=== PATIENT | male | born 2005 | race Caucasian/White ===

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

== ENCOUNTER 2024-02-02 17:38 | Emergency (ER) | payer SELFPAY ==
--- NOTE | 2024-02-02 18:00 | XR_ITS ---
PROCEDURE INFORMATION: Exam: XR Left Hand Exam date and time: 02/02/2024 5:56 PM Age: 18 years old Clinical indication: Injury or trauma; Other: Smashed in car door; Blunt trauma (contusions or hematomas); Hand; Left; Additional info: Smashed 1st digit in car door TECHNIQUE: Imaging protocol: Radiologic exam of the left hand. Views: 3 or more views. COMPARISON: No relevant prior studies available. FINDINGS: Bones/joints: No acute fracture or malalignment. Soft tissues: Normal. IMPRESSION: No acute osseous findings.
[2024-02-02 18:10] VITALS: BP 122/74; PULSE 89; RESP 18; TEMP 36.6; O2SAT 98; BMI 38.4
--- NOTE | 2024-02-02 18:15 | ED_ITS ---
Discharge Plan Disposition Patient Disposition: Home, Self-Care Condition: Good Prescriptions Prescriptions: New ibuprofen [IBU] 800 mg tablet 800 mg PO Q8HP PRN (Reason: Moderate Pain) Qty: 30 0RF Referrals Follow up/Referrals: Harjeet Soto [Primary Care Provider] - See instructions Richard Nava DO [Staff Physician] - See instructions Activity Restrictions/Add. Instructions Additional Instructions/Restrictions: Rest the extremity, Elevate the extremity as tolerated while you are resting. Take ibuprofen for pain. I sent in a prescription to your pharmacy. Follow up with Dr. Nava (orthopedics). I put in a referral but you need to call his office and schedule an appointment. Follow up with your regular doctor. GO TO THE ER FOR ANY WORSENING SYMPTOMS Clinical Impressions Clinical Impression: Crushing injury of left thumb, Pain of right middle finger Stand Alone Forms Stand Alone Forms: Work/School Release Instructions Patient Instructions: DI for Crush Injury Discharge ED Provider: Panda Batista [facility] General Stated complaint: AO 02/01, left thumb pain Time Seen by Provider: 02/02/24 18:15 History of Present Illness Provider Complaint: He states that he closed his left thumb up in his truck door today. Since then he has had pain of the middle joint on his thumb. Also, he has been having right middle finger pain for the past 2 weeks. He denies any injury of this finger but he does have some swelling and a knot on top of it just proximal to the first joint. Related Data Previous Rx's Medication Instructions Recorded ibuprofen 800 mg tablet (IBU) 800 mg PO Q8HP PRN Moderate Pain 02/02/24 #30 tabs Allergies Allergy/AdvReac Type Severity Reaction Status Date / Time No Known Allergies Allergy Verified 02/02/24 18:20 [facility] Disclaimer: The information contained in this section may have been updated after the patient was seen, as this information can be updated by other users. Social History Smoking Status: Never smoker alcohol intake: never current occupational status: employed Travel in the last 8 weeks: None ROS Obtained: Yes All systems reviewed & no additional complaints except as documented Constitutional Constitutional: Denies chills and Denies fever(s) Eyes Eyes: Denies eye discharge ENT Ears, Nose, Mouth, and Throat: Denies dizziness, Denies otalgia and Denies sore throat Cardiovascular Cardiovascular: Denies chest pain Respiratory Respiratory: Denies shortness of breath, Denies chest congestion, Denies cough, Denies stridor and Denies wheezing Gastrointestinal Gastrointestingal: Denies nausea or vomiting Musculoskeletal Musculoskeletal: Reports as per HPI Integumentary/Breasts Skin/Breast: Denies rash Neurologic Neurologic: Denies dizziness and Denies paresthesias Allergic/Immunologic Allergic/Immunologic: Denies wheezing Physical Exam General General appearance: alert and in no apparent distress Head Head exam: atraumatic, normocephalic and normal inspection Eye Eye exam: Present normal appearance, PERRL and EOMI ENT ENT exam: Present normal exam, normal oropharynx, mucous membranes moist, TM's normal bilaterally and normal external ear exam Neck Neck exam: Present normal inspection, full ROM and trachea midline; Absent meningismus or lymphadenopathy Chest Chest inspection: Present normal inspection and symmetric chest wall rise; Absent tenderness Respiratory Respiratory exam: Present normal lung sounds bilaterally; Absent respiratory distress Cardiovascular Cardiovascular exam: Present regular rate and normal rhythm; Absent JVD Abdominal Exam Abdominal exam: Present soft and normal bowel sounds; Absent distention, tenderness or guarding Extremities Exam Extremities exam: Present normal capillary refill; Absent calf tenderness Expanded Upper Extremity Exam Left: Forearm/Wrist exam: Present normal inspection and full ROM; Absent tenderness, tenderness over anatomical snuff box or pain with axial thumb loading Hand exam: Present full ROM and tenderness; Absent swelling, abrasion, laceration, skin avulsion, ecchymosis, deformity, crepitus, dislocation, erythema, amputation, nail avulsion or subungual hematoma Neuromotor exam: Normal wrist extension, thumb opposition, thumb IP flexion, thumb adduction and fingers 2-5 abduction Neurosensory exam: Normal radial nerve, ulnar nerve and median nerve Vascular exam: Normal capillary refill, radial pulse and ulnar pulse Back Exam Back exam: Present normal inspection; Absent tenderness Neurological Exam Neurological exam: Present alert and oriented X3 Psychiatric Psychiatric exam: Present normal affect and normal mood Skin Skin exam: Present warm, dry, intact and normal color Lymphatic Lymphatic Findings: no adenopathy Medical Decision Making Medical Records Medical records reviewed: No I reviewed the patient's medical records. Jermaine Inquiry Pt receiving controlled substance: No Orders (Tests/Meds): ORDERS Category Date Time Status Hand XR left minimum 3 views [XR hand LT min 3V] Stat Exams 02/02/24 18:00 Taken Radiology Data #1: Image(s): Hand Image Reviewed: Yes I reviewed the patient's radiology image and Yes I have reviewed radiologist's interpretation Preliminary Findings: Normal/NAD and No Fracture Seen PROCEDURE INFORMATION: Exam: XR Left Hand Exam date and time: 02/02/2024 5:56 PM Age: 18 years old Clinical indication: Injury or trauma; Other: Smashed in car door; Blunt trauma (contusions or hematomas); Hand; Left; Additional info: Smashed 1st digit in car door TECHNIQUE: Imaging protocol: Radiologic exam of the left hand. Views: 3 or more views. COMPARISON: No relevant prior studies available. FINDINGS: Bones/joints: No acute fracture or malalignment. Soft tissues: Normal. IMPRESSION: No acute osseous findings.
[2024-02-02 18:55] VITALS: BP 122/74; PULSE 89; RESP 18; TEMP 36.6; O2SAT 98
== END 2024-02-02 18:55 | disposition home or self-care (01) ==
PROVIDERS: Emergency Provider Nurse Practitioner Family; PCP Pediatrics
DX: S67.02XA Crushing injury of left thumb, initial encounter (principal); M79.644 Pain in right finger(s); W23.0XXA Caught, crushed, jammed, or pinched between moving objects, initial encounter
CPT/HCPCS: 73130; 99204; 99212; G0463

== ENCOUNTER 2024-05-10 17:38 | Emergency (ER) | payer OTHER, SELFPAY ==
--- NOTE | 2024-05-10 17:38 | ECG_ITS ---
APPROVED REPORT Exam: Resting ECG HR:89 bpm ECG Measurements Heart Rate 89 AXES LA 166 P 66 QRSd 101 QRS 83 QT 329 T 15 QTc 376 Conclusion SINUS RHYTHM NORMAL ECG Electronically signed by : DAILY GONZALEZ, 05/11/2024 04:34:53
[2024-05-10 17:39] VITALS: BP 125/84; PULSE 89; RESP 16; TEMP 36.9; O2SAT 99; BMI 38.4
--- NOTE | 2024-05-10 17:51 | ED_ITS ---
<Statement entered by Flavia Stoner MD - 05/10/24 22:59> I was consulted by the BRYAN, and we discussed the complexity of the problems being addressed. I approved the treatment and management plan for this patient's care in the emergency department, thus performing a substantive portion of the medical decision making. Flavia Stoner MD, PEEWEE, FACEP Discharge Plan Disposition Patient Disposition: Home, Self-Care Condition: Good Prescriptions Prescriptions: No Action desvenlafaxine succinate [Pristiq] 50 mg tablet extended release 24 hr 50 mg PO DAILY Qty: 30 2RF ibuprofen [IBU] 800 mg tablet 800 mg PO Q8HP PRN (Reason: Moderate Pain) Qty: 30 0RF Referrals Follow up/Referrals: Andrew Collier MD [Staff Physician] - See instructions Provider,MD Arturo [Primary Care Provider] - See instructions Activity Restrictions/Add. Instructions Additional Instructions/Restrictions: I have referred you to cardiology. Please call in the morning to schedule your appointment. Return to the emergency department for any worsening signs or symptoms. Please follow-up with your PCP within 48 hours for recheck. Clinical Impressions Clinical Impression: Chest pain Stand Alone Forms Stand Alone Forms: Work/School Release Instructions Patient Instructions: DI for Chest Pain Discharge ED Provider: Flavia Stoner General Adult HPI General Chief complaint: Chest Pain Stated complaint: chest pain Time Seen by Provider: 05/10/24 17:51 Mode of Arrival: Wheelchair Source of Information: Patient Limitations: No Limitations Description of Symptoms (Recalled from ER Triage Doc. by RN): Patient reports sharp shooting pains going through his heart that started approx 2-3 hours ago. States at the time he was bringing the kids in from being outside for approx 1 hour. History of Present Illness HPI narrative: Patient presents for evaluation of sharp left chest pain that started 2-3 hours prior to arrival after getting his kids out of a car. He has no previous history but does have a family history of congenital heart disease. Patient denies shortness of breath fever chills hemoptysis hematochezia melena nausea vomiting diarrhea. Pain does not radiate. Related Data Previous Rx's Medication Instructions Recorded ibuprofen 800 mg tablet (IBU) 800 mg PO Q8HP PRN Moderate Pain 02/02/24 #30 tabs desvenlafaxine succinate 50 mg 50 mg PO DAILY #30 tabs 04/11/24 tablet,extended release 24 hr (Pristiq) Allergies Allergy/AdvReac Type Severity Reaction Status Date / Time No Known Allergies Allergy Verified 04/11/24 15:22 [facility] Disclaimer: The information contained in this section may have been updated after the patient was seen, as this information can be updated by other users. Social History Smoking Status: Current every day smoker alcohol intake: never current occupational status: employed Travel in the last 8 weeks: None ROS Obtained: Yes Systems reviewed as appropriate & no additional complaints except as documented Physical Exam General General appearance: alert and in no apparent distress Respiratory Respiratory exam: Present normal lung sounds bilaterally Cardiovascular Cardiovascular exam: Present regular rate and normal rhythm Neurological Exam Neurological exam: Present alert and oriented X3 Medical Decision Making Medical Records Medical records reviewed: Yes I reviewed the patient's medical records. Jermaine Inquiry Pt receiving controlled substance: No Vital Signs: 05/10/24 17:39 05/10/24 18:01 Temperature 98.5 F Temperature Source Oral Pulse Rate 87 Pulse Rate [Radial] 89 Respiratory Rate 16 Blood Pressure 119/63 Blood Pressure [Right Arm] 125/84 Blood Pressure Mean [Right Arm] 97 Blood Pressure Source [Right Arm] Automatic Cuff Blood Pressure Position [Right Arm] Supine 02 Sat by Pulse Oximetry 99 97 Oxygen Delivery Method Room Air Lab Data Lab results reviewed: Yes I reviewed the patient's lab results. Lab Results 05/10/24 17:43: WBC 8.2, RBC 5.23, Hgb 15.3, Hct 45.3, MCV 86.6, MCH 29.3, MCHC 33.8, RDW 13.1, Plt Count 228, MPV 6.9 L, Neut % (Auto) 47.3, Lymph % (Auto) 39.8, [place] % (Auto) 7.6, Eos % (Auto) 4.2, Baso % (Auto) 1.0, Neut # (Auto) 3.9, Lymph # (Auto) 3.3, [place] # (Auto) 0.6, Eos # (Auto) 0.4, Baso # (Auto) 0.1, Sodium 143, Potassium 3.7, Chloride 110 H, Carbon Dioxide 27, Anion Gap 9.7, BUN 12, Creatinine 0.90, Estimated Creat Clear 218, Estimated GFR 108, Est GFR ( Amer) 130, Glucose 87, Calcium 9.3, Magnesium 1.9, Total Bilirubin 0.3, AST 29, ALT 28, Alkaline Phosphatase 59, Troponin I < 0.01, Total Protein 7.0, Albumin 4.4, Globulin 2.6, Albumin/Globulin Ratio 1.7 05/10/24 17:43 05/10/24 17:43 Orders (Tests/Meds): ED MEDICATIONS Discontinued Medications Generic Name Dose Route Start Last Admin Trade Name Deo PRN Reason Stop Dose Admin Acetaminophen 1,000 mg 05/10/24 18:04 05/10/24 18:18 Acetaminophen 1,000mg/100ml Vial IV 05/10/24 18:05 1,000 mg ONCE ONE Administration Belladonna Alkaloids 60 ml 05/10/24 18:04 05/10/24 18:18 Belladonna Alkaloids 60 Ml Ml PO 05/10/24 18:05 60 ml ONCE ONE Administration Lactated Ringer's 1,000 mls @ 999 mls/hr 05/10/24 18:04 05/10/24 18:19 Lactated Ringer's 1000 Ml Bag IV 05/10/24 19:04 999 mls/hr .Q1H1M ONE Administration Ketorolac Tromethamine 15 mg 05/10/24 18:04 05/10/24 18:18 Ketorolac 30mg/Ml Vial IV 05/10/24 18:05 15 mg ONCE ONE Administration ORDERS Category Date Time Status Chest XR -- portable [XR chest portable] Stat Exams 05/10/24 18:05 Completed CBC w/Auto Diff [Complete Blood Count Auto Diff] Stat Lab 05/10/24 17:43 Completed CMP [Comprehensive Metabolic Panel] Stat Lab 05/10/24 17:43 Completed Magnesium Stat Lab 05/10/24 17:43 Completed Trop I [Troponin I] Stat Lab 05/10/24 17:43 Completed Troponin I Q3H Lab 05/10/24 21:15 Ordered Troponin I Q3H Lab 05/11/24 00:15 Ordered HEART Score History (anamnesis): Slightly suspicious ECG: Normal Age: <45 years Risk factors: 1-2 risk factors Troponin: </= normal limit HEART Score: 1 Medical Decision Narrative: In summary patient is a 18-year-old male who presents to the emergency department for evaluation of chest pain. Patient is hemodynamically stable upon arrival, afebrile. Physical exam is unremarkable nonfocal including nonreproducible pain on palpation. Breath sounds are clear and equal bilaterally heart sounds are normal. Differential diagnosis includes ACS versus PE versus muscle skeletal strain. Initial workup will be conducted with hematologic labs twelve-lead EKG. Initial interventions include crystalloid bolus Toradol Tylenol GI cocktail. Initial workup reviewed by me and his hematologic labs are nonactionable including a negative troponin, twelve-lead EKG shows no evidence of ACS and his chest x-ray is clear via my informal interpretation. Upon repeat evaluation patient has had resolution of his chest pain after initial intervention. Given this patient is appropriate for discharge with referral to cardiology for further restratification and workup as needed. Critical Care Critical Care Time Critical Care Time: No
[2024-05-10 18:01] VITALS: BP 119/63; PULSE 87; O2SAT 97
--- NOTE | 2024-05-10 18:05 | XR_ITS ---
PROCEDURE INFORMATION: Exam: XR Chest Exam date and time: 05/10/2024 6:07 PM Age: 18 years old Clinical indication: Chest wall pain; Additional info: Chest pain TECHNIQUE: Imaging protocol: Radiologic exam of the chest. Views: 1 view. COMPARISON: No relevant prior studies available. FINDINGS: Lungs: Unremarkable. No consolidation. Pleural spaces: Unremarkable. No pleural effusion. No pneumothorax. Heart/Mediastinum: Unremarkable. No cardiomegaly. Bones/joints: Unremarkable. IMPRESSION: No acute findings.
[2024-05-10 18:13] LABS: Basophils # 0.1 K/mm3 (0-0.2); Eosinophils # 0.4 K/mm3 (0.0-0.4); Eosinophils % 4.2 % (0.1-12.0); Hematocrit 45.3 % (42.0-52.0); Hemoglobin 15.3 g/dL (14.1-18.0); Lymphocytes # 3.3 K/mm3 (0.7-4.5); Lymphocytes % 39.8 % (10-50); Mean Corpuscular HGB Conc 33.8 g/dL (31.8-35.4); Mean Corpuscular Hemoglobin 29.3 pg (27.0-31.2); Mean Corpuscular Volume 86.6 fl (80-94); Mean Platelet Volume 6.9 fl (7.4-10.4); Monocytes # 0.6 K/mm3 (0.1-1.0); Monocytes % 7.6 % (1.7-9.3); Neutrophils # 3.9 K/mm3 (1.8-7.8); Neutrophils % 47.3 % (37.0-80.0); Platelet Count 228 K/mm3 (142-424); Red Blood Count 5.23 M/mm3 (4.60-6.20); Red Cell Distribution Width 13.1 % (11.5-17.5); White Blood Count 8.2 K/mm3 (4.5-13.0)
[2024-05-10 18:15] LABS: Chloride 110 mmol/L (98-107); Potassium 3.7 mmoL/L (3.5-5.1); Sodium 143 mmol/L (136-145)
[2024-05-10 18:17] LABS: Blood Urea Nitrogen 12 mg/dl (9-20); Creatinine Clearance Estimated 218 mL/min (50-200); Estimated Glomerular Filt Rate 108 ml/min (>60); GFR (African American) 130 ML/MIN (>60)
[2024-05-10 18:18] LABS: Alanine Aminotransferase 28 U/L (12-78); Albumin Level 4.4 g/dl (3.5-5.0); Albumin/Globulin Ratio 1.7 (1.1-1.8); Alkaline Phosphatase 59 U/L (38-126); Anion Gap 9.7 mEq/L (5-15); Aspartate Amino Transferase 29 U/L (17-59); Bilirubin,Total 0.3 mg/dl (0.2-1.3); Calcium 9.3 mg/dl (8.4-10.2); Carbon Dioxide 27 mmol/L (22.0-30.0); Globulin 2.6 g/dL (1.3-3.2); Glucose 87 mg/dl (74-100); Magnesium 1.9 mg/dl (1.6-2.3)
[2024-05-10] MEDS: ACETAMINOPHEN 1,000MG/100ML VIAL 1000 MG IV (18:18)
[2024-05-10] MEDS: BELLADONNA ALKALOIDS 60 ML ML PO (18:18)
[2024-05-10] MEDS: KETOROLAC 30MG/ML VIAL 15 MG IV (18:18)
[2024-05-10] MEDS: LACTATED RINGERS 1000ML 1,000 ML 999 ML IV (18:19)
[2024-05-10 18:47] LABS: Troponin I < 0.01 ng/ml (0.00-0.034)
[2024-05-10 19:00] VITALS: BP 121/68; PULSE 79; O2SAT 95
[2024-05-10 19:32] VITALS: BP 121/68; PULSE 83; RESP 20; TEMP 36.7; O2SAT 98
== END 2024-05-10 19:33 | disposition home or self-care (01) ==
PROVIDERS: Physician Assistant; Emergency Provider Student in an Organized Health Care Education/Training Program
DX: R07.9 Chest pain, unspecified (principal); F17.210 Nicotine dependence, cigarettes, uncomplicated
CPT/HCPCS: 71045; 80053; 83735; 84484; 85025; 93005; 96361; 96374; 96375; 99284; J0131; J1885; J7120

== ENCOUNTER 2024-05-23 10:27 | Outpatient (CLI) | payer OTHER, SELFPAY ==
[2024-05-23 19:00] LABS: Basophils # 0.1 K/mm3 (0-0.2); Basophils % 1.3 % (0.1-2.0); Eosinophils # 0.3 K/mm3 (0.0-0.4); Eosinophils % 5.1 % (0.1-12.0); Hematocrit 46.9 % (42.0-52.0); Hemoglobin 15.4 g/dL (14.1-18.0); Lymphocytes % 35.4 % (10-50); Mean Corpuscular HGB Conc 32.8 g/dL (31.8-35.4); Mean Corpuscular Hemoglobin 29.3 pg (27.0-31.2); Mean Corpuscular Volume 89.3 fl (80-94); Mean Platelet Volume 8.4 fl (7.4-10.4); Monocytes # 0.4 K/mm3 (0.1-1.0); Monocytes % 6.8 % (1.7-9.3); Neutrophils % 51.5 % (37.0-80.0); Platelet Count 250 K/mm3 (142-424); Red Blood Count 5.25 M/mm3 (4.60-6.20); Red Cell Distribution Width 13.3 % (11.5-17.5); White Blood Count 5.7 K/mm3 (4.8-10.8)
[2024-05-23 19:24] LABS: Alanine Aminotransferase 32 U/L (12-78); Albumin Level 4.3 g/dl (3.5-5.0); Albumin/Globulin Ratio 1.7 (1.1-1.8); Alkaline Phosphatase 70 U/L (38-126); Anion Gap 13.2 mEq/L (5-15); Aspartate Amino Transferase 26 U/L (17-59); Bilirubin,Total 0.8 mg/dl (0.2-1.3); Blood Urea Nitrogen 12 mg/dl (9-20); Calcium 9.4 mg/dl (8.4-10.2); Carbon Dioxide 24 mmol/L (22.0-30.0); Chloride 109 mmol/L (98-107); Estimated Glomerular Filt Rate 142 ml/min (>60); GFR (African American) 172 ML/MIN (>60); Globulin 2.6 g/dL (1.3-3.2); Glucose 92 mg/dl (74-100); Potassium 4.2 mmoL/L (3.5-5.1); Sodium 142 mmol/L (136-145); Total Protein,Serum 6.9 g/dl (6.3-8.2)
[2024-05-23 19:53] LABS: Thyroid Stimulating Hormone 0.99 uIU/mL (0.465-4.68)
[2024-05-23 20:04] LABS: Hemoglobin A1C 4.8 % (4.0-6.0)
[2024-05-23 20:20] LABS: Microalbumin/Creatinine Ratio 18.2
[2024-05-23 20:22] LABS: Creatinine,Urine Random 74 mg/dL (Not Estab.)
== END 2024-05-23 23:59 | disposition home or self-care (01) ==
LOC: LAB.DROPOF 05-24 10:27
PROVIDERS: PCP Nurse Practitioner; Visit Provider Nurse Practitioner
DX: I10 Essential (primary) hypertension (principal); Z72.0 Tobacco use
CPT/HCPCS: 80050; 80053; 82043; 82570; 83036; 84443; 85025

== ENCOUNTER 2024-05-24 10:24 | Outpatient (CLI) | payer OTHER, SELFPAY ==
--- NOTE | 2024-05-24 10:25 | CA_ITS ---
APPROVED REPORT EXAM: Comprehensive 2D, Doppler, and color-flow Echocardiogram Sanitation Officer: Anjali Peck RCS, RVS Ht: 5 ft 9 in Wt: 270lbs BSA: 2.35 BP: 138/92 mmHg Indications: Palpitations, CP, HTN, Vaping Echo Enhancing Agent Comments: TDS: Due to extreme body habitus. 2D Dimensions LVDd 4.95 cm LA Volume 79.40 mL Aortic Root 3.25 cm LA Volume Index [id number] mL/m2 (M/F) 16-34 Left Atrium 3.38 cm EF AP4 68.30 % RVID Base (AP4) 4.35 cm (M/F) 2.5-4.1 GL Strain -20.0 % LVOT 2.12 cm (M/F) 1.5-2.5 M-Mode Dimensions RVDd 1.78 cm (0.9-2.6) LVDd 4.95 cm (3.5-5.7) Ao Diam 3.27 cm (2.0-3.7) LVDs 3.63 cm (3.5-5.7) IVSd 1.14 cm (0.6-1.1) PWd 1.18 cm (0.6-1.1) EF (Teich) 62.30% EPSs 0.76 cm FS 34.00% EDV (Teich) 147.40 mL TAPSE 2.50 (<1.7) ESV (Teich) 55.50 mL LV Diastology E Decel Time 189 (160-240 msec) E/A Ratio 1.87 MED E' 10.7 (>= 7 cm/sec) MED A' 7.60 cm/s E'/MED E' Ratio 8.95 (<= 14) LAT E' 13.5 (>= 10 cm/sec) LAT A' 8.90 cm/s E/LAT E' Ratio 7.10 (<= 14) Aortic Valve LVOT Max 94.0 (70-110 cm/s) HANSEL Index 0.99 cm2/m2 LVOT VTI 17.83 cm AoV Peak Koby. 137.0 (50-130 cm/s) AO Peak GR. 6.60 mmHg AO Mean GR. 3.80 (<5 mmHg) AO VTI 27.1 (18-25 cm) HANSEL (VTI) 2.32 (2.5-4.5 cm2) Mitral Valve MV E Max Koby. 96.0 (40-130 cm/s) MV A Velocity 51.0 (40-130 cm/s) E/A Ratio 1.87 MV Decel. Time 189 (160-240 ms) Tricuspid Valve TR P. Velocity 259.00 cm/s RAP Estimate 10.00 mmHg RVSP 36.90 mmHg Left Ventricle The left ventricle is normal size. The left ventricular systolic function is normal. The left ventricular ejection fraction is within the normal range. There is normal left ventricular wall thickness. There is normal LV segmental wall motion. The left ventricular diastolic function is normal. LVEF is 55%. Right Ventricle Right ventricle is mildly dilated. The right ventricular systolic function is normal. Atria The left atrium size is normal. The right atrium size is normal. There is no Doppler evidence of interatrial shunt. Aortic Valve The aortic valve opens well. There is no aortic valvular stenosis. Trace aortic regurgitation. Mitral Valve The mitral valve is normal in structure. No evidence of mitral valve stenosis. Trace mitral regurgitation. Tricuspid Valve The tricuspid valve leaflets are thin and pliable. Trace tricuspid regurgitation. There is insufficient TR jet to estimate RVSP. Pulmonic Valve The pulmonary valve is normal in structure. Trace pulmonic regurgitation. Great Vessels The aortic root is normal in size. The ascending aorta is normal in size. IVC is normal in size and collapses >50% with inspiration. Pericardium There is no pericardial effusion. Other Information Study Quality: Fair Conclusion Normal biventricular systolic function. Mild RV dilation. No significant valvular stenosis or regurgitation. There is no Doppler evidence of interatrial shunt. In the setting of mild RV dilation, further evaluation with limited TTE plus bubble study (i.e. agitated saline administration) is suggested to rule out interatrial shunt. Also, cardiac MRI ([facility] protocol) is recommended to rule out ARVC in the setting of young age and symptoms of palpitations with RV dilation on TTE. Electronically signed by : Laly Jacome MD 05/24/2024 11:51:14
== END 2024-05-24 23:59 | disposition home or self-care (01) ==
PROVIDERS: PCP Nurse Practitioner; Visit Provider Nurse Practitioner
DX: R00.2 Palpitations (principal); R07.9 Chest pain, unspecified; Z82.79 Family history of other congenital malformations, deformations and chromosomal abnormalities
CPT/HCPCS: 93225; 93227; 93306

== ENCOUNTER 2024-06-01 13:09 | Outpatient (CLI) | payer OTHER, SELFPAY ==
--- NOTE | 2024-06-01 | CA_ITS ---
APPROVED REPORT EXAM: Limited 2D Echocardiogram Pharmacy Technician Program Director: Mena Tatum RT(R) Ht: 5 ft 9 in Wt: 260lbs BSA: 2.31 BP: 138/92 mmHg Indications: Palpitations, CP, smoker, dilated RV on TTE 05/24/24, ordered as a bubble study only. Echo Enhancing Agent Indication: Rule out Shunt Agent(s) / Amount(s) Used: Agitated Saline 15 cc Other Information Study Quality: Fair Conclusion This is a limited TTE with agitated saline administration to evaluate for interatrial shunt. Limited windows were obtained. The left ventricle is normal in size. There is normal LV systolic function. LVEF is 55%. The right ventricle is mildly dilated. There is normal RV function. Administration of agitated saline demonstrates positive migration of bubbles from the RA into the LA, suggestive of presence of interatrial shunt. Further evaluation with cardiac MRI (cardiomyopathy protocol + ASD evaluation Qp:Qs ratio) and EDEN are recommended to evaluate for the size and location of the interatrial shunt. Electronically signed by : Laly Jacome MD 06/01/2024 19:46:03
== END 2024-06-01 23:59 | disposition home or self-care (01) ==
LOC: RT 13:10
PROVIDERS: PCP Nurse Practitioner; Visit Provider Nurse Practitioner
DX: I51.7 Cardiomegaly (principal); R00.2 Palpitations; R07.9 Chest pain, unspecified; R06.02 Shortness of breath; Z82.79 Family history of other congenital malformations, deformations and chromosomal abnormalities
CPT/HCPCS: 93270; 93308

== ENCOUNTER 2024-06-15 12:18 | Outpatient (CLI) | payer OTHER, SELFPAY ==
[2024-06-15] MEDS: IVABRADINE HCL 7.5MG TABLET *IVABRADINE+METOPROLOL REGIMINE 15 MG PO (12:41)
[2024-06-15] MEDS: METOPROLOL TARTRATE 50MG TABLET *IVABRADINE+METOPROLOL REGIMINE 75 MG PO (12:41)
[2024-06-15 13:20] VITALS: BP 143/80; PULSE 78; RESP 18; TEMP 36.5; O2SAT 95; BMI 37.6
[2024-06-15 14:03] VITALS: BP 128/69; PULSE 83; RESP 18; O2SAT 100
[2024-06-15 14:06] VITALS: BP 100/54; PULSE 65; RESP 18; O2SAT 100
[2024-06-15 14:09] VITALS: BP 101/55; PULSE 60; RESP 18; O2SAT 100
[2024-06-15] MEDS: IOPAMIDOL-370 (76%);100ML BOTTLE 85 ML IV (14:16)
[2024-06-15] MEDS: 0.9 % SODIUM CHLORIDE 50 ML VIAL IV (14:16)
[2024-06-15] MEDS: SODIUM CHLORIDE 0.9% 10ML SYR (RAD ONLY) 10 ML IV (14:16)
[2024-06-15 14:20] VITALS: BP 118/72; PULSE 62; RESP 18; O2SAT 100
[2024-06-15] MEDS: NITROGLYCERIN 0.4MG SL TABLET 0.8 MG SL (14:20)
== END 2024-06-15 23:59 | disposition home or self-care (01) ==
PROVIDERS: PCP Nurse Practitioner; Visit Provider Nurse Practitioner
DX: R07.9 Chest pain, unspecified (principal); R00.2 Palpitations; R06.02 Shortness of breath; Z82.79 Family history of other congenital malformations, deformations and chromosomal abnormalities
CPT/HCPCS: 75574; Q9967

== ENCOUNTER 2024-07-14 09:51 | Outpatient (CLI) | payer OTHER, SELFPAY ==
--- NOTE | 2024-07-14 09:51 | MR_ITS ---
APPROVED REPORT Internet Architect: CLINICAL INDICATION RV dilation on TTE TECHNIQUE Image Acquisition: Cardiac magnetic resonance (CMR) was performed on Siemens Espree MRI 1.5T scanner. Software platform sequences were performed using the Siemens Machine Talker MR B19 platform. A set of three-plane, low-resolution, large bhrlf-of-blnh localizers were initially acquired. Then axial, coronal, sagittal TrueFISP, as well as axial HASTE images, were obtained. These were followed by gated TrueFISP breathold cinematic sequences obtained in the short axis with 8 mm slices and 2 mm gaps, 2-chamber (vertical long axis), 3-chamber, 4-chamber (horizontal long axis). A bolus of contrast was injected intravenously with first-pass sequences obtained in the short axis and four-chamber planes. After approximately 10 minutes, a TI financial reserve clerk sequence was performed to determine the optimal TI time. Using the optimized TI time, delayed contrast enhancement segmented inversion???recovery TurboFLASH sequences were obtained in the short axis, 2-chamber, 3-chamber, and 4-chamber projections. 2D-velocity phase mapping was performed. Functional parameters were calculated by offline analysis on an independent workstation ([employer] 1 [employer] Platform, CVIGreystripe). Contrast: ProHance??? (Gadoteridol) FINDINGS MORPHOLOGY AND FUNCTION Left ventricle: The left ventricle is normal in size. The indexed left ventricular end-diastolic volume (LVEDVi) is 76 ml/m2 (reference range 57-105 ml/m2 in males, 56-96 ml/m2 in females). Normal left ventricular systolic function is present. There is normal left ventricular wall thickness. There are no regional wall motion abnormalities noted. LVEF is calculated at 57.6% (reference range 57-77%). Right ventricle: The right ventricle is normal in size. The indexed right ventricular end-diastolic volume (RVEDVi) is 89 ml/m2 (reference range 61-121 ml/m2 in males, 48-112 ml/m2 in females). Normal right ventricular systolic function is present. RVEF is calculated at 50.0% (reference range 52-72% in males, 51-71% in females). Atria: The left atrium is normal in size. The maximum indexed left atrial volume is 20 ml/m2 (reference range 26-52 ml/m2 in males, 27-53 ml/m2 in females). The right atrium is normal in size. The maximum indexed right atrial volume is 18 ml/m2 (reference range 18-90 ml/m2). Aorta: The diameter of the aortic annulus is normal, measuring 28 mm (coronal view reference range 21-30 mm in males, 19-27 mm in females). The diameter of the aortic sinus is normal, measuring 33 mm (coronal view reference range 25-42 mm in males, 24-36 mm in females). The diameter of the sinotubular junction is normal, measuring 27 mm (coronal view reference range 18-32 mm in males, 18-28 mm in females). The diameters of the ascending and descending thoracic aorta are normal. Main pulmonary artery: The main pulmonary artery diameter is normal. Pericardium: The pericardial thickness is normal. The pericardial thickness measures 1.0 mm (normal < 4.0 mm). There is no pericardial effusion. VALVES The valvular morphologies in the visualized sequences appear normal. There is no significant valvular stenosis or regurgitation of the mitral, aortic, tricuspid, or pulmonic valve noted visually. Systolic anterior motion of the mitral valve is not visualized. Ratio of pulmonary to systemic flow, Qp:Qs ratio = 0.9 (normal < or = 1.2, hemodynamically significant shunt > 1.5), demonstrating no evidence of hemodynamically significant shunt. TISSUE CHARACTERIZATION Resting Perfusion: Normal myocardial blood flow at rest. No evidence of resting hypoperfusion. Myocardial Fibrosis and/or edema: Normal gadolinium kinetics are present. No evidence of late gadolinium enhancement is noted, consistent with absence of myocardial scarring, infarction, or necrosis. T2-weighted imaging demonstrates no evidence of myocardial edema or inflammation. OTHER No other significant findings are noted. However, this exam is focused on the cardiac structure and function. IMPRESSION Normal LV size with normal LV systolic function. LVEDVi= 76 ml/m2 and LVEF= 57.6%. Normal RV size with normal RV systolic function. RVEDVi= 89 ml/m2 and RVEF= 50.0%. No atrial enlargement. No CMR evidence of myocardial scarring, infarction, or necrosis. No evidence of myocardial edema or inflammation. Perfusion analysis demonstrates normal blood flow at rest with no evidence of resting hypoperfusion. Ratio of pulmonary to systemic flow, Qp:Qs ratio = 0.9 (normal < or = 1.2, hemodynamically significant shunt > 1.5), demonstrating no evidence of hemodynamically significant shunt. This CMR demonstrates normal biventricular size and systolic function. No evidence of RV dilation. No CMR criteria for ARVC. No evidence of myocardial scarring, inflammation, or prior infarct. Qp/Qs ratio normal, suggestive against presence of interatrial shunt. COMPARISON None CRITICAL RESULT None COMMUNICATION Per this written report The findings of this cardiac MR were reviewed, reported, and signed by Alfie Jacome MD (Chair And Couch Maker). Conclusion Electronically signed by : Laly Jacome MD 08/08/2024 13:28:52
[2024-07-14 10:15] LABS: Blood Urea Nitrogen 17 mg/dl (9-20); Estimated Glomerular Filt Rate 122 ml/min (>60); GFR (African American) 148 ML/MIN (>60)
[2024-07-14] MEDS: GADOTERIDOL INJ 20ML SYRINGE 20 ML IV (12:10)
[2024-07-14] MEDS: SODIUM CHLORIDE 0.9% 10ML SYR (RAD ONLY) 10 ML IV (12:10)
[2024-07-14] MEDS: GADOTERIDOL INJ 10ML SYRINGE 6 ML IV (12:10)
[2024-07-14] MEDS: 0.9 % SODIUM CHLORIDE 50 ML VIAL 20 ML IV (12:11)
== END 2024-07-14 23:59 | disposition home or self-care (01) ==
LOC: RAD 09:51
PROVIDERS: PCP Nurse Practitioner; Visit Provider Nurse Practitioner
DX: I51.7 Cardiomegaly (principal)
CPT/HCPCS: 36415; 75561; 82565; 84520; A9576

== ENCOUNTER 2024-07-26 10:20 | Day surgery (SDC) | payer OTHER, SELFPAY ==
[2024-07-24 15:06] VITALS: BMI 40.4
--- NOTE | 2024-07-26 10:25 | CA_ITS ---
APPROVED REPORT EXAM: Comprehensive 2D, Doppler, and color-flow Echocardiogram Tail Ripper: Nathalie CunninghamCECILLE Ht: 5 ft 9 in Wt: 274lbs BSA: 2.36 BP: 134/88 mmHg Indications: INTRAATRIAL SHUNT SUSPECTED ON BUBBLE STUDY ON TTE (DIFFICULT STUDY),RV DILITATION ON TTE, HTN, SMOKER, PALPS Procedure After obtaining informed consent, patient underwent transesophageal echo in the [facility]. Type of Sedation : MAC Sedation was administered by Emir Walls C.R.N.A. Sedation start time: 11:45 Case end Time: 12:00 The EDEN was performed without complications. Throughout the procedure, the blood pressure, pulse oximetry, cardiac rhythm, and rate were monitored. The patient tolerated the procedure without adverse effects. Recovery from conscious sedation was uneventful and vital signs were stable. Left Ventricle The left ventricle is normal size. The left ventricular systolic function is normal. The left ventricular ejection fraction is within the normal range. There is normal left ventricular wall thickness. There is normal LV segmental wall motion. LVEF is 55%. Right Ventricle Right ventricle is mildly dilated. The right ventricular systolic function is normal. Atria The left atrium size is normal. No thrombus is visualized in the left atrium or appendage. The right atrium size is normal. Interatrial septum is intact without evidence of ASD or PFO. There is no Doppler evidence of interatrial shunt. Agitated saline administration does not demonstrate evidence of interatrial shunt. Aortic Valve The aortic valve opens well. The aortic valve is trileaflet. There is no aortic valvular stenosis. No aortic regurgitation is present. Mitral Valve The mitral valve is normal in structure. No evidence of mitral valve stenosis. There is no mitral valve regurgitation noted. Tricuspid Valve The tricuspid valve leaflets are thin and pliable. Mild tricuspid regurgitation. RVSP is 10 mmHg + RA pressure. Pulmonic Valve The pulmonary valve is normal in structure. Trace pulmonic regurgitation. Great Vessels The aortic root is normal in size. The ascending aorta is normal in size. Pericardium There is no pericardial effusion. Other Information Study Quality: Adequate Conclusion Normal biventricular systolic function. Mild RV dilation. No significant valvular stenosis or regurgitation. Interatrial septum is intact without evidence of ASD or PFO. There is no Doppler evidence of interatrial shunt. Agitated saline administration does not demonstrate evidence of interatrial shunt. Electronically signed by : Laly Jacome MD 07/27/2024 11:37:07
[2024-07-26 10:43] VITALS: BP 124/83; PULSE 67; RESP 18; TEMP 36.5; O2SAT 96; BMI 39.9
--- NOTE | 2024-07-26 10:50 | ECG_ITS ---
APPROVED REPORT Exam: Resting ECG HR:61 bpm ECG Measurements Heart Rate 61 AXES MO 163 P 9 QRSd 98 QRS 35 QT 366 T 19 QTc 370 Conclusion SINUS RHYTHM NORMAL ECG Electronically signed by : ROSHAN KABA, 07/26/2024 14:34:52
[2024-07-26] MEDS: LACTATED RINGERS 1000ML 1,000 ML 25 ML IV (10:53)
[2024-07-26 11:04] LABS: Chloride 105 mmol/L (98-107)
[2024-07-26 11:05] LABS: Potassium 3.9 mmoL/L (3.5-5.1); Sodium 137 mmol/L (136-145)
[2024-07-26 11:08] LABS: Anion Gap 10.9 mEq/L (5-15); Blood Urea Nitrogen 12 mg/dl (9-20); Calcium 9.2 mg/dl (8.4-10.2); Carbon Dioxide 25 mmol/L (22.0-30.0); Creatinine Clearance Estimated 289 mL/min (50-200); Estimated Glomerular Filt Rate 142 ml/min (>60); GFR (African American) 172 ML/MIN (>60); Glucose 96 mg/dl (74-100)
--- NOTE | 2024-07-26 11:21 | EXP.ANES.CKL ---
[facility] Disclaimer: The information contained in this section may have been updated after the patient was seen, as this information can be updated by other users. Medical History Bradycardia ASD (atrial septal defect) Right ventricular dilation Essential hypertension Family history of congenital heart defect Palpitations ACL tear Poor concentration Generalized anxiety disorder Major depression, recurrent Crushing injury of left thumb Family History Other No significant family history Social History (Updated 07/26/24 @ 10:50 by Jennifer Newsome RN) Smoking Status: Current every day smoker alcohol intake: never substance use type: denies use current occupational status: employed and disabled Travel in the last 8 weeks: None caffeine: Yes [facility] Anesthesia Checklist Patient Identification Patient Identification: Arm Band Structural Data Admitted From: Home Planned Operative Procedure/s: EDEN Consent for Planned Operative Procedure(s) Verified: Yes Verified Documents: Surgical Consent and History and Physical NPO Status Verified Time NPO: 00:00 Additional verifications Anesthesia Reactions: No Hx Blood Transfusions: No Blood Transfusion Reaction: No Airway Assessment Mallampati Score:: Class II C-Spine Mobility Assessed: Yes TMJ Mobility Assessed: Yes Dentition: Good Dentition Neurological Assessment Level of Consciousness: Awake, Alert and Appropriate Anesthesia Plan Anesthesia Risk discussed: Yes Anesthesia Plan: Verified ASA Class: III Anesthesia Type: MAC
[2024-07-26 11:41] VITALS: O2SAT 100
[2024-07-26 11:45] LABS: Basophils # 0.1 K/mm3 (0-0.2); Eosinophils # 0.4 K/mm3 (0.0-0.4); Eosinophils % 6.2 % (0.1-12.0); Hematocrit 44.8 % (42.0-52.0); Hemoglobin 14.3 g/dL (14.1-18.0); Lymphocytes # 2.3 K/mm3 (0.7-4.5); Lymphocytes % 38.6 % (10-50); Mean Corpuscular HGB Conc 31.9 g/dL (31.8-35.4); Mean Corpuscular Hemoglobin 28.7 pg (27.0-31.2); Mean Corpuscular Volume 90.1 fl (80-94); Mean Platelet Volume 7.1 fl (7.4-10.4); Monocytes # 0.5 K/mm3 (0.1-1.0); Monocytes % 7.7 % (1.7-9.3); Neutrophils # 2.8 K/mm3 (1.8-7.8); Neutrophils % 46.5 % (37.0-80.0); Platelet Count 243 K/mm3 (142-424); Red Blood Count 4.98 M/mm3 (4.60-6.20); Red Cell Distribution Width 13.2 % (11.5-17.5); White Blood Count 6.1 K/mm3 (4.8-10.8)
[2024-07-26 12:00] VITALS: BP 95/54; PULSE 65; RESP 18; TEMP 36.3; O2SAT 95
[2024-07-26 12:10] VITALS: BP 96/44; PULSE 66; RESP 16; O2SAT 93
[2024-07-26 12:20] VITALS: BP 108/64; PULSE 95; RESP 16; O2SAT 96
[2024-07-26 12:30] VITALS: BP 108/64; PULSE 65; RESP 16; TEMP 36.7; O2SAT 96
[2024-07-26 12:51] LABS: INR 1.06 (0.9-1.1); Prothrombin Time 11.8 seconds (10.1-12.5)
== END 2024-07-26 12:30 | disposition home or self-care (01) ==
PROVIDERS: PCP Nurse Practitioner; Visit Provider Internal Medicine
DX: R07.9 Chest pain, unspecified (principal); Q21.10 Atrial septal defect, unspecified; I51.7 Cardiomegaly; R00.2 Palpitations; I11.9 Hypertensive heart disease without heart failure
CPT/HCPCS: 80048; 85025; 85610; 93005; 93270; 93312; 93319; J3010; J7120

== ENCOUNTER 2024-10-09 07:42 | Outpatient (CLI) | payer BC, OTHER, SELFPAY ==
--- NOTE | 2024-10-09 07:43 | CT_ITS ---
FINAL REPORT TECHNIQUE: Axial imaging of the chest was obtained without contrast. Reformatted images were also obtained and reviewed.This study was performed with techniques to keep radiation doses as low as reasonably achievable, (ALARA). Individualized dose reduction technique using automated exposure control or adjustment of mA and/or kV according to the patient's size were employed. CLINICAL HISTORY: chest pain FINDINGS: Exam is limited without intravenous contrast. There is no axillary adenopathy. There is no hilar or mediastinal mass or adenopathy. Heart size is normal. There is no pericardial or pleural effusion. Limited images of the upper abdomen are unremarkable. There is a 3 mm left lower lobe nodule on image 48 most consistent with granuloma. There is no acute lung disease. Thoracic aorta is normal in caliber. There is no obvious rib fracture or pneumothorax. IMPRESSION: No acute process. Reviewed, Interpreted and Dictated by Hui Cavanaugh MD Transcribed by Adry Brennan Authenticated and [facility]
--- NOTE | 2024-10-09 07:43 | CT_ITS ---
FINAL REPORT TECHNIQUE: Axial images were obtained from skull base to the thoracic inlet by computed tomography. Coronal and sagittal reconstruction process performed. This study was performed with techniques to keep radiation doses as low as reasonably achievable (ALARA). Individualized dose reduction techniques using automated exposure control or adjustment of mA and/or kV according to the patient''s size were employed. CLINICAL HISTORY: numbness in BUE s FINDINGS: There is no acute fracture or subluxation. No significant spinal or neuroforaminal canal stenosis is seen. The disc spaces are preserved. The facets are normally aligned. The soft tissues are unremarkable. Limited images of the lung apices are unremarkable. C2-3: Unremarkable. C3-4: Moderate left bony neuroforaminal narrowing and tiny central disc protrusion. C4-5: Unremarkable. C5-6: Unremarkable. C6-7: Minimal annular disc bulge without canal stenosis. C7-T1: Unremarkable. IMPRESSION: No acute fracture. Mild degenerative changes. Reviewed, Interpreted and Dictated by Hui Cavanaugh MD Transcribed by Adry Brennan Authenticated and [facility]
--- NOTE | 2024-10-09 07:43 | CT_ITS ---
FINAL REPORT TECHNIQUE: Thin section axial CT images with coronal and sagittal reformats were performed through the neck. This study was performed with techniques to keep radiation doses as low as reasonably achievable (ALARA). Individualized dose reduction techniques using automated exposure control or adjustment of mA and/or kV according to the patient''s size were employed. CLINICAL HISTORY: numbness in Bilateral UE s FINDINGS: There is mucosal thickening of the bilateral maxillary sinuses. There is a mucous retention cyst in the left maxillary sinus. No adenopathy or mass lesion is present . Salivary glands are normal. Larynx is unremarkable. Thyroid gland is unremarkable. IMPRESSION: Mucosal thickening of the bilateral maxillary sinuses. Mucous retention cyst in the left maxillary sinus. Reviewed, Interpreted and Dictated by Hui Cavanaugh MD Transcribed by Adry Brennan Authenticated and [facility]
== END 2024-10-09 23:59 | disposition home or self-care (01) ==
LOC: RAD 07:43
PROVIDERS: PCP Nurse Practitioner; Visit Provider Internal Medicine
DX: R20.0 Anesthesia of skin (principal); R20.2 Paresthesia of skin; R07.89 Other chest pain; R00.1 Bradycardia, unspecified
CPT/HCPCS: 70490; 71250; 72125

== ENCOUNTER 2024-10-10 22:14 | Emergency (ER) | payer BC, OTHER, SELFPAY ==
[2024-10-10 22:14] VITALS: BP 109/51; PULSE 83; RESP 18; TEMP 37; O2SAT 96; BMI 44.9
--- NOTE | 2024-10-10 22:57 | ED_ITS ---
Discharge Plan Disposition Patient Disposition: Home, Self-Care Prescriptions Prescriptions: No Action lisinopril-hydrochlorothiazide 20-12.5 mg tablet 1 tab PO DAILY Qty: 30 2RF (DME) blood pressure test kit-large Kit See Rx Instructions .Route Qty: 1 0RF Rx Instructions: As directed albuterol sulfate 90 mcg/actuation HFA aerosol inhaler 2 puff inhalation Q4-6H PRN (Reason: shortness of breath or wheezing) Qty: 8.5 0RF (DME) blood pressure monitor [Blood Pressure Kit] Kit See Rx Instructions .Route Qty: 1 0RF Rx Instructions: As directed omeprazole 40 mg capsule,delayed release(DR/EC) 40 mg PO DAILY Qty: 30 3RF bisoprolol fumarate 5 mg tablet See Rx Instructions .ROUTE .COMPLEX Qty: 90 3RF Dose Instruction: TAKE 1 TABLET BY MOUTH EVERY DAY Rx Instructions: TAKE 1 TABLET BY MOUTH EVERY DAY diclofenac sodium 75 mg tablet,delayed release (DR/EC) 75 mg PO DAILY Rx Instructions: TAKE 1 TABLET BY MOUTH TWICE A DAY Referrals Follow up/Referrals: Aure Shanks APRN [Primary Care Provider] - See instructions Activity Restrictions/Add. Instructions Additional Instructions/Restrictions: Please apply eardrops 4 drops twice a day for 7 days for irritation/infection of the outer ear. Clinical Impressions Clinical Impression: Foreign body in ear Qualifiers: Encounter type: initial encounter Laterality: left Qualified Code(s): T16.2XXA - Foreign body in left ear, initial encounter Print Language Print Language: Cambodian Discharge ED Provider: Isaac Johnson General Adult HPI General Chief complaint: Ear Stated complaint: LT ear pain Time Seen by Provider: 10/10/24 22:57 History of Present Illness HPI narrative: 19-year-old male without significant past medical history presents with ear pain on the left. He reports he woke up with it this morning. He feels like he is hearing water/around in there. Related Data Home Medications ?Medication ?Instructions ?Recorded ?Confirmed diclofenac sodium 75 mg 75 mg PO DAILY 07/24/24 10/04/24 tablet,delayed release Previous Rx's ?Medication ?Instructions ?Recorded albuterol sulfate 90 mcg/actuation 2 puff inhalation Q4-6H PRN 05/16/24 aerosol inhaler shortness of breath or wheezing #8.5 grams blood pressure monitor (Blood #1 ea 05/23/24 Pressure Kit) bisoprolol fumarate 5 mg tablet See Rx Instructions .Route 08/21/24 .COMPLEX #90 tabs blood pressure test kit-large #1 ea 08/28/24 lisinopril 20 1 tab PO DAILY #30 tabs 08/28/24 mg-hydrochlorothiazide 12.5 mg tablet omeprazole 40 mg capsule,delayed 40 mg PO DAILY #30 caps 09/05/24 release Allergies Allergy/AdvReac Type Severity Reaction Status Date / Time No Known Allergies Allergy Verified 10/04/24 14:06 [facility] Disclaimer: The information contained in this section may have been updated after the patient was seen, as this information can be updated by other users. Medical History Witnessed apneic spells Snoring Has daytime drowsiness Bradycardia ASD (atrial septal defect) Right ventricular dilation Essential hypertension Family history of congenital heart defect Palpitations ACL tear Poor concentration Generalized anxiety disorder Major depression, recurrent Crushing injury of left thumb Family History Other No significant family history Social History Smoking Status: Current every day smoker alcohol intake: never substance use type: denies use current occupational status: employed and disabled Travel in the last 8 weeks: None caffeine: Yes Have you lived/traveled outside [place] in past 30 days?: No Contact w/someone who lives/traveled outside [place] past 30 days?: No Exposure to someone with infectious disease in past 14 days?: No Do you have a fever (greater than 100.4 F or 38 C)?: No Have you tested positive for COVID-19: No Exposed to someone with COVID-19 in past 14 days?: No Do you have a sore throat?: No Do you have a cough?: No Do you have any weakness?: No Do you have any diarrhea?: No Are you experiencing any unusual bleeding?: No Do you have any muscle aches/pain?: No Do you have any abdominal pain?: No Are you experiencing loss of taste or smell?: No Other Medical History Have you received the Flu Vaccine for this season: No Have you received the Pneumonia Vaccine: No ROS Obtained: Yes All systems reviewed & no additional complaints except as documented Physical Exam General General appearance: alert and in no apparent distress Head Head exam: atraumatic and normocephalic Eye Eye exam: Present normal appearance, PERRL and EOMI ENT ENT exam: Present normal oropharynx, normal external ear exam and other (large moving bug in left ear) Neck Neck exam: Present normal inspection and full ROM Chest Chest inspection: Present normal inspection and symmetric chest wall rise; Absent tenderness Respiratory Respiratory exam: Present normal lung sounds bilaterally; Absent respiratory distress Cardiovascular Cardiovascular exam: Present regular rate and normal rhythm Abdominal Exam Abdominal exam: Present soft; Absent distention, tenderness or guarding Extremities Exam Extremities exam: Present normal inspection; Absent edema or joint swelling Back Exam Back exam: Present normal inspection; Absent tenderness Neurological Exam Neurological exam: Present alert and oriented X3; Absent motor sensory deficit Psychiatric Psychiatric exam: Present normal affect and normal mood Skin Skin exam: Present warm, dry and normal color Lymphatic Lymphatic Findings: no adenopathy Medical Decision Making Medical Records Medical records reviewed: Yes I reviewed the patient's medical records. Screening: Per USPSTF and CDC recommendations, given the prevalence of disease in our region, it is our hospital?s policy to screen for HIV and viral Hepatitis for all patients aged 18 and over and those with ongoing risk factors. Jermaine Inquiry Pt receiving controlled substance: No Jermaine was queried for this patient: No Vital Signs: 10/10/24 22:14 10/11/24 01:09 Temperature 98.6 F 98.6 F Temperature Source Oral Oral Pulse Rate 74 Pulse Rate [Right Radial] 83 Respiratory Rate 18 18 Blood Pressure 144/83 H Blood Pressure [Right Arm] 109/51 L Blood Pressure Mean [Right Arm] 70 Blood Pressure Source Automatic Cuff Blood Pressure Source [Right Arm] Automatic Cuff Blood Pressure Position Sitting Blood Pressure Position [Right Arm] Sitting 02 Sat by Pulse Oximetry 96 Oxygen Delivery Method Room Air Room Air Lab Data Lab results reviewed: Yes I reviewed the patient's lab results. Orders (Tests/Meds): ED MEDICATIONS Discontinued Medications Generic Name Dose Route Start Last Admin Trade Name Freq PRN Reason Stop Dose Admin Ciprofloxacin/Dexamethasone 0 ml 10/11/24 01:04 10/11/24 01:16 Cipro 0.3%-Dex 0.1% Otic Susp 7.5ml OT 10/11/24 01:05 Not Given ONCE ONE Lidocaine HCl 10 ml 10/11/24 00:36 10/11/24 00:41 Lidocaine 2% 20ml Vial IJ 10/11/24 00:37 10 ml ONCE ONE Administration Medical Decision Narrative: 19-year-old male without significant past medical history presents with 1 day of left ear pain and sensation of something moving in his ear. On exam patient has a large live insect in his left ear, lodged deeply. The canal is erythematous. Differential includes ear foreign body, TM perforation, otitis externa. Lidocaine was instilled and the bug was killed. Through combination of alligator forceps and irrigation we were able to pull the bug out in pieces. No obvious TM perforation on exam, though the entire TM was not visible on my exam. Patient was given Ciprodex drops for antibiotic prophylaxis and discharged in stable condition. Procedures Risk/Benefits of Procedure(s) Were Explained: Yes FB Removal Ear Location: ear canal (L) Foreign Body Suspected: insect TM intact pre-procedure: unable to visualize If Insect Suspected: ear canal instilled with Lidocaine Foreign Body Removed: yes Foreign Body Removal Technique: forceps (And irrigation) Tympanic Membrane Intact Post Procedure: Yes (Unable to fully visualize, but the visualized TM was normal in color, patie) Patient Tolerated Procedure: well Complications: bleeding Critical Care Critical Care Time Critical Care Time: No
[2024-10-11] MEDS: LIDOCAINE 2% 20ML VIAL 10 ML IJ (00:41)
[2024-10-11 01:09] VITALS: BP 144/83; PULSE 74; RESP 18; TEMP 37; O2SAT 98
[2024-10-11] MEDS: CIPRO 0.3%-DEX 0.1% OTIC SUSP 7.5ML 7.5 ML OT (01:18)
== END 2024-10-11 01:22 | disposition home or self-care (01) ==
PROVIDERS: Emergency Provider Emergency Medicine; PCP Nurse Practitioner
DX: T16.2XXA Foreign body in left ear, initial encounter (principal); H92.02 Otalgia, left ear; W44.F4XA Insect entering into or through a natural orifice, initial encounter; Y93.9 Activity, unspecified
CPT/HCPCS: 69200; 99283

== ENCOUNTER 2024-10-22 19:05 | Emergency (ER) | payer BC, OTHER, SELFPAY ==
--- NOTE | 2024-10-22 19:19 | EXP.UTC ---
Discharge Plan Disposition Patient Disposition: Home, Self-Care Condition: Good Prescriptions Prescriptions: New cyclobenzaprine 10 mg Tablet 10 mg PO BID PRN (Reason: Muscle Spasm) Qty: 20 0RF methylprednisolone 4 mg Tablets,Dose Pack 4 mg PO DIRECTED 6 Days Qty: 21 0RF Rx Instructions: Take 1 pack as directed for 6 days No Action lisinopril-hydrochlorothiazide 20-12.5 mg tablet 1 tab PO DAILY Qty: 30 2RF (DME) blood pressure test kit-large Kit See Rx Instructions .Route Qty: 1 0RF Rx Instructions: As directed albuterol sulfate 90 mcg/actuation HFA aerosol inhaler 2 puff inhalation Q4-6H PRN (Reason: shortness of breath or wheezing) Qty: 8.5 0RF (DME) blood pressure monitor [Blood Pressure Kit] Kit See Rx Instructions .Route Qty: 1 0RF Rx Instructions: As directed omeprazole 40 mg capsule,delayed release(DR/EC) 40 mg PO DAILY Qty: 30 3RF bisoprolol fumarate 5 mg tablet See Rx Instructions .ROUTE .COMPLEX Qty: 90 3RF Dose Instruction: TAKE 1 TABLET BY MOUTH EVERY DAY Rx Instructions: TAKE 1 TABLET BY MOUTH EVERY DAY diclofenac sodium 75 mg tablet,delayed release (DR/EC) 75 mg PO DAILY Rx Instructions: TAKE 1 TABLET BY MOUTH TWICE A DAY Referrals Follow up/Referrals: Aure Shanks APRN [Primary Care Provider] - See instructions Activity Restrictions/Add. Instructions Additional Instructions/Restrictions: Go home and rest. It would be best if you rested tomorrow too. No heavy lifting & No twisting for the next few days. Take the oral medications as directed. The muscle relaxer (cyclobenzaprine--Flexeril) will make you drowsy, so don't drive or operate heavy machinery after taking it. Don't start the oral steroids (medrol dose pack) until tomorrow, since you had the shots in here today. Follow up with your regular doctor. * Clinical Impressions Clinical Impression: Low back pain, Low back strain Stand Alone Forms Stand Alone Forms: Work/School Release Instructions Patient Instructions: DI for Low Back Pain, Cyclobenzaprine, Methylprednisolone, DI for Back Strain or Sprain Print Language Print Language: Chinese Discharge ED Provider: Panda Batista [facility] [place] HPI General Stated complaint: back pain Time Seen by Provider: 10/22/24 19:18 History of Present Illness Provider Complaint: He states that for the past 4 days he has had low back pain. He denies any fall or specific injury. He has had episodes of similar pain in the past. Related Data Home Medications ?Medication ?Instructions ?Recorded ?Confirmed diclofenac sodium 75 mg 75 mg PO DAILY 07/24/24 10/24/24 tablet,delayed release Previous Rx's ?Medication ?Instructions ?Recorded albuterol sulfate 90 mcg/actuation 2 puff inhalation Q4-6H PRN 05/16/24 aerosol inhaler shortness of breath or wheezing #8.5 grams blood pressure monitor (Blood #1 ea 05/23/24 Pressure Kit) bisoprolol fumarate 5 mg tablet See Rx Instructions .Route 08/21/24 .COMPLEX #90 tabs blood pressure test kit-large #1 ea 08/28/24 lisinopril 20 1 tab PO DAILY #30 tabs 08/28/24 mg-hydrochlorothiazide 12.5 mg tablet omeprazole 40 mg capsule,delayed 40 mg PO DAILY #30 caps 09/05/24 release cyclobenzaprine 10 mg tablet 10 mg PO BID PRN Muscle Spasm #20 10/22/24 tabs methylprednisolone 4 mg tablets in 4 mg PO DIRECTED 6 days #21 tabs 10/22/24 a dose pack Allergies Allergy/AdvReac Type Severity Reaction Status Date / Time No Known Allergies Allergy Verified 10/24/24 10:46 [facility] Disclaimer: The information contained in this section may have been updated after the patient was seen, as this information can be updated by other users. Medical History (Updated 10/24/24 @ 11:22 by Aure Shanks APRN) DDD (degenerative disc disease), cervical Witnessed apneic spells Snoring Has daytime drowsiness Bradycardia ASD (atrial septal defect) Right ventricular dilation Essential hypertension Family history of congenital heart defect Palpitations ACL tear Poor concentration Generalized anxiety disorder Major depression, recurrent Crushing injury of left thumb Family History Other No significant family history Social History Smoking Status: Current every day smoker alcohol intake: never substance use type: denies use current occupational status: employed and disabled Travel in the last 8 weeks: None caffeine: Yes Have you lived/traveled outside [place] in past 30 days?: No Contact w/someone who lives/traveled outside [place] past 30 days?: No Exposure to someone with infectious disease in past 14 days?: No Do you have a fever (greater than 100.4 F or 38 C)?: No Have you tested positive for COVID-19: No Exposed to someone with COVID-19 in past 14 days?: No Do you have a sore throat?: No Do you have a cough?: No Do you have shortness of breath?: No Do you have a headache?: No Do you have any weakness?: No Are you experiencing any nausea/vomitting?: No Do you have any diarrhea?: No Are you experiencing any unusual bleeding?: No Do you have any muscle aches/pain?: No Do you have any abdominal pain?: No Are you experiencing loss of taste or smell?: No ROS Obtained: Yes All systems reviewed & no additional complaints except as documented Constitutional Constitutional: Denies chills and Denies fever(s) Eyes Eyes: Denies eye discharge ENT Ears, Nose, Mouth, and Throat: Denies dizziness, Denies otalgia, Denies neck pain and Denies sore throat Cardiovascular Cardiovascular: Denies chest pain Respiratory Respiratory: Denies shortness of breath, Denies chest congestion, Denies cough, Denies stridor and Denies wheezing Gastrointestinal Gastrointestingal: Denies nausea or vomiting Musculoskeletal Musculoskeletal: Reports as per HPI, Reports back pain and Denies neck pain Integumentary/Breasts Skin/Breast: Denies rash Neurologic Neurologic: Denies dizziness and Denies paresthesias Allergic/Immunologic Allergic/Immunologic: Denies wheezing Physical Exam General General appearance: alert and in no apparent distress Head Head exam: atraumatic, normocephalic and normal inspection Eye Eye exam: Present normal appearance, PERRL and EOMI ENT ENT exam: Present normal exam, normal oropharynx, mucous membranes moist, TM's normal bilaterally and normal external ear exam Neck Neck exam: Present normal inspection, full ROM and trachea midline; Absent meningismus or lymphadenopathy Chest Chest inspection: Present normal inspection and symmetric chest wall rise; Absent tenderness Respiratory Respiratory exam: Present normal lung sounds bilaterally; Absent respiratory distress Cardiovascular Cardiovascular exam: Present regular rate and normal rhythm; Absent JVD Abdominal Exam Abdominal exam: Present soft and normal bowel sounds; Absent distention, tenderness or guarding Extremities Exam Extremities exam: Present normal inspection, full ROM and normal capillary refill; Absent calf tenderness Back Exam Back exam: Present normal inspection; Absent tenderness Neurological Exam Neurological exam: Present alert, oriented X3, CN II-XII intact, normal gait and reflexes normal; Absent motor sensory deficit Psychiatric Psychiatric exam: Present normal affect and normal mood Skin Skin exam: Present warm, dry, intact and normal color Lymphatic Lymphatic Findings: no adenopathy Medical Decision Making Medical Records Medical records reviewed: No I reviewed the patient's medical records. Screening: Per USPSTF and CDC recommendations, given the prevalence of disease in our region, it is our hospital?s policy to screen for HIV and viral Hepatitis for all patients aged 18 and over and those with ongoing risk factors. Jermaine Inquiry Pt receiving controlled substance: No
[2024-10-22 19:21] VITALS: BP 140/67; PULSE 79; RESP 18; TEMP 36.6; O2SAT 99; BMI 38.9
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
[2024-10-22] MEDS: DEXAMETHASONE 4MG/ML 1ML VIAL 8 MG IM (20:01)
[2024-10-22] MEDS: KETOROLAC 60MG/2ML VIAL 60 MG IM (20:01)
[2024-10-22 20:06] VITALS: BP 140/67; PULSE 79; RESP 18; TEMP 36.6
== END 2024-10-22 20:17 | disposition home or self-care (01) ==
PROVIDERS: Emergency Provider Nurse Practitioner Family; PCP Nurse Practitioner
DX: S39.012A Strain of muscle, fascia and tendon of lower back, initial encounter (principal); X50.9XXA Other and unspecified overexertion or strenuous movements or postures, initial encounter
CPT/HCPCS: 72070; 72100; 96372; 99212; G0381; J1100; J1885

== ENCOUNTER 2024-11-03 11:13 | Outpatient (CLI) | payer OTHER, SELFPAY ==
[2024-11-03 11:27] LABS: Basophils # 0.1 K/mm3 (0-0.2); Basophils % 1.1 % (0.1-2.0); Eosinophils # 0.2 K/mm3 (0.0-0.4); Eosinophils % 2.9 % (0.1-12.0); Hematocrit 45.1 % (42.0-52.0); Hemoglobin 15.4 g/dL (14.1-18.0); Lymphocytes # 2.6 K/mm3 (0.7-4.5); Lymphocytes % 39.8 % (10-50); Mean Corpuscular HGB Conc 34.1 g/dL (31.8-35.4); Mean Corpuscular Hemoglobin 28.1 pg (27.0-31.2); Mean Corpuscular Volume 82.3 fl (80-94); Mean Platelet Volume 9.5 fl (7.4-10.4); Monocytes # 0.8 K/mm3 (0.1-1.0); Monocytes % 11.7 % (1.7-9.3); Neutrophils # 2.9 K/mm3 (1.8-7.8); Neutrophils % 44.3 % (37.0-80.0); Platelet Count 251 K/mm3 (142-424); Red Blood Count 5.48 M/mm3 (4.60-6.20); White Blood Count 6.5 K/mm3 (4.8-10.8)
[2024-11-08 01:12] LABS: D001-IgE D pteronyssinus 0.64 kU/L (Class II); D002-IgE D farinae 7.05 kU/L (Class IV); E001-IgE Cat Dander 0.55 kU/L (Class I); E005-IgE Dog Dander 0.96 kU/L (Class II); E072-IgE Mouse Urine 0.65 kU/L (Class II); Immunoglobulin E, Total 428 IU/mL (6-495); M001-IgE Penicillium chrysogen 0.54 kU/L (Class I); M002-IgE Cladosporium herbarum 0.48 kU/L (Class I); M003-IgE Aspergillus fumigatus 0.28 kU/L (Class 0/I); M006-IgE Alternaria alternata 1.34 kU/L (Class II)
== END 2024-11-03 23:59 | disposition home or self-care (01) ==
LOC: LAB 11:14
PROVIDERS: PCP Nurse Practitioner; Visit Provider Internal Medicine Pulmonary Disease
DX: J45.909 Unspecified asthma, uncomplicated (principal)
CPT/HCPCS: 36415; 82785; 85025; 86003

== ENCOUNTER 2024-11-04 21:02 | Emergency (ER) | payer SELFPAY ==
[2024-11-04 21:17] VITALS: BP 164/87; PULSE 88; RESP 20; TEMP 36.8; O2SAT 98; BMI 81.3
--- NOTE | 2024-11-04 21:22 | PC.NURSE ---
C-collar placed on patient due to neck pain
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
[2024-11-04 21:53] LABS: Basophils # 0.1 K/mm3 (0-0.2); Basophils % 0.6 % (0.1-2.0); Eosinophils # 0.1 K/mm3 (0.0-0.4); Eosinophils % 0.9 % (0.1-12.0); Lymphocytes # 2.3 K/mm3 (0.7-4.5); Monocytes # 0.4 K/mm3 (0.1-1.0); Neutrophils # 5.2 K/mm3 (1.8-7.8)
[2024-11-04] MEDS: MORPHINE 4MG/ML SYRINGE 4 MG IV (21:53)
[2024-11-04] MEDS: ONDANSETRON 4MG/2ML VIAL 4 MG IV (21:54)
[2024-11-04] MEDS: 0.9 % SODIUM CHLORIDE 1000ML 1,000 ML 999 ML IV (21:55)
[2024-11-04 21:59] LABS: Albumin Level 4.4 g/dl (3.5-5.0); Chloride 107 mmol/L (98-107); Potassium 3.7 mmoL/L (3.5-5.1); Sodium 139 mmol/L (136-145)
[2024-11-04 22:00] LABS: Hematocrit 43.1 % (42.0-52.0); Hemoglobin 14.4 g/dL (14.1-18.0); Mean Corpuscular HGB Conc 33.4 g/dL (31.8-35.4); Mean Corpuscular Hemoglobin 27.9 pg (27.0-31.2); Mean Corpuscular Volume 83.5 fl (80-94); Mean Platelet Volume 9.6 fl (7.4-10.4); Monocytes % 5.4 % (1.7-9.3); Neutrophils % 63.9 % (37.0-80.0); Platelet Count 239 K/mm3 (142-424); Red Blood Count 5.16 M/mm3 (4.60-6.20); White Blood Count 8.1 K/mm3 (4.8-10.8)
[2024-11-04 22:02] LABS: Alanine Aminotransferase 28 U/L (12-78); Albumin/Globulin Ratio 1.8 (1.1-1.8); Alkaline Phosphatase 60 U/L (38-126); Anion Gap 9.7 mEq/L (5-15); Aspartate Amino Transferase 30 U/L (17-59); Bilirubin,Total 0.3 mg/dl (0.2-1.3); Blood Urea Nitrogen 11 mg/dl (9-20); Carbon Dioxide 26 mmol/L (22.0-30.0); Creatinine Clearance Estimated 146 mL/min (50-200); Estimated Glomerular Filt Rate 122 ml/min (>60); GFR (African American) 148 ML/MIN (>60); Globulin 2.4 g/dL (1.3-3.2); Lipase 39 U/L (23-300); Total Protein,Serum 6.8 g/dl (6.3-8.2)
[2024-11-04 22:03] LABS: Calcium 9.2 mg/dl (8.4-10.2); Glucose 92 mg/dl (74-100)
[2024-11-04 22:05] LABS: Activated Partial Thrombo Time 30.2 seconds (22.8-30.6); INR 1.01 (0.9-1.1); Prothrombin Time 11.3 seconds (10.1-12.5)
[2024-11-04] MEDS: 0.9 % SODIUM CHLORIDE 50 ML VIAL 80 ML IV (22:51)
[2024-11-04] MEDS: SODIUM CHLORIDE 0.9% 10ML SYR (RAD ONLY) 10 ML IV (22:51)
[2024-11-04] MEDS: IOPAMIDOL-370 (76%);100ML BOTTLE 160 ML IV (22:51)
[2024-11-04 22:55] LABS: HIV Combo NEGATIVE (Negative)
[2024-11-04 23:02] LABS: Hepatitis C Ab Qual. W/ RFX NEGATIVE (Negative)
[2024-11-05 00:10] VITALS: BP 144/98; PULSE 82; RESP 20; TEMP 36.8; O2SAT 98
--- NOTE | 2024-11-05 21:19 | ECG_ITS ---
APPROVED REPORT Exam: Resting ECG HR:87 bpm ECG Measurements Heart Rate 87 AXES MD 167 P 51 QRSd 106 QRS 78 QT 335 T 47 QTc [address] ELEVATION, PROBABLY EARLY REPOLARIZATION [ST ELEVATION WITH NORMALLY INFLECTED T-WAVE] BORDERLINE ECG UNCONFIRMED REPORT Electronically signed by : TEMO GONSALVES, 11/06/2024 23:05:27
== END 2024-11-05 00:14 | disposition home or self-care (01) ==
PROVIDERS: Student in an Organized Health Care Education/Training Program; Emergency Provider Emergency Medicine; PCP Nurse Practitioner
DX: M54.2 Cervicalgia (principal); M54.9 Dorsalgia, unspecified; R51.9 Headache, unspecified; M25.511 Pain in right shoulder; M25.531 Pain in right wrist; V89.2XXA Person injured in unspecified motor-vehicle accident, traffic, initial encounter; Y93.89 Activity, other specified; Y92.488 Other paved roadways as the place of occurrence of the external cause
CPT/HCPCS: 70450; 70496; 70498; 71275; 72125; 72128; 72131; 73030; 73110; 74174; 80053; 83690; 85025; 85610; 85730; 86803; 87389; 93005; 96361; 96374; 96375; 99285; J2270; J2405; J7030; Q9967

== ENCOUNTER 2025-05-20 20:42 | Emergency (ER) | payer OTHER, SELFPAY ==
[2025-05-20 20:43] VITALS: BP 122/75; PULSE 72; RESP 16; TEMP 36.4; O2SAT 98; BMI 36.9
[2025-05-20 20:51] VITALS: BP 122/75; PULSE 74; O2SAT 98
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
--- OUTSIDE RECORDS SUMMARY | 2025-05-20 20:55 | XMS_ITS | Clinical Summary ---
Author Organization Healthcare Address [address] [place] [address] Care Team Providers Care Small Products Assembler Name Role Phone Harjeet Soto MD Primary Care Provider Social History Tobacco Use Types Packs/Day Years Used Date Smoking Tobacco: Never Assessed Sex and Gender Information Value Date Recorded Sex Assigned at Not on file Legal Sex Male 6:36 PM EDT Gender Identity Not on file Sexual Orientation Not on file Plan of Treatment Health Maintenance Due Date Last Done Comments [facility]-Depression Screening 2003 [facility]-/Child/Adol SDOH Screenings 2003 [facility]- SDOH Screenings 2021 [facility]-Adult SDOH Screenings 2021 [id number] Vaccine (1 - season) 2024 [facility]-DTaP,Tdap,and Td Vaccines (7 - Td or Tdap) 06/21/2025 06/21/2015, 06/17/2007, 05/25/2005, Additional history exists [facility]-Influenza Vaccine (#1) 2025 [facility]-Zoster Vaccines (1 of 2) 2053 06/22/2011, 11/21/2004 [facility]-Hepatitis B Vaccines Completed 004, 02/15/2004, 2003, Additional history exists [facility]-HIB Vaccines Completed 11/21/2004, 05/2004, 2003, Additional history exists [facility]-IPV Vaccines Aged Out 06/17/2007, , 2003, Additional history exists No longer eligible based on patient's age to complete this topic [facility]-Varicella Vaccines Completed 06/22/2011, 2004 [facility]-Hepatitis A Vaccines Completed 06/21/2018, 04/25 HPV Vaccines Completed 06/22/2019, 2016 [facility]-Pneumococcal Vaccine: Pediatrics (0 to 5 Years) and At-Risk Patients (6 to 49 Years) Aged Out No longer eligible based on patient's age to complete this topic [facility]-Rotavirus Vaccines Aged Out No lo nger eligible based on patient's age to complete this topic Insurance [facility] MEDICAID Care Teams Small Products Assembler Relationship Specialty Start Date End Date Harjeet Soto MD [address] [place] [address] PCP - General 03/07/21
[2025-05-20 21:01] VITALS: BP 133/53; PULSE 69; O2SAT 98
[2025-05-20] MEDS: IBUPROFEN 400 MG TABLET 800 MG PO (21:17)
[2025-05-20] MEDS: ACETAMINOPHEN 500MG TAB 1000 MG PO (21:17)
[2025-05-20] MEDS: METHOCARBAMOL 500MG TABLET 500 MG PO (21:17)
[2025-05-20] MEDS: LIDOCAINE 5% TRANSDERMAL PATCH 1 EACH TD (21:18)
[2025-05-20 21:48] VITALS: BP 133/53; PULSE 69; RESP 22; TEMP 36.7; O2SAT 98
== END 2025-05-20 21:57 | disposition home or self-care (01) ==
PROVIDERS: Emergency Provider Student in an Organized Health Care Education/Training Program; PCP Nurse Practitioner
DX: M54.40 Lumbago with sciatica, unspecified side (principal); G89.29 Other chronic pain
CPT/HCPCS: 99283

== ENCOUNTER 2025-06-09 15:45 | Emergency (ER) | payer OTHER, SELFPAY ==
[2025-06-09 15:54] VITALS: BP 155/93; PULSE 105; RESP 16; TEMP 37; O2SAT 98; BMI 36.1
--- OUTSIDE RECORDS SUMMARY | 2025-06-09 15:59 | XMS_ITS | Clinical Summary ---
Author Organization Healthcare Address [address] [place] [address] Care Team Providers Care College President Name Role Phone Harjeet Soto MD Primary Care Provider [phone] Social History Tobacco Use Types Packs/Day Years Used Date Smoking Tobacco: Never Assessed Sex and Gender Information Value Date Recorded Sex Assigned at Not on file Legal Sex Male 6:36 PM EDT Gender Identity Not on file Sexual Orientation Not on file Plan of Treatment Health Maintenance Due Date Last Done Comments [facility]-Depression Screening 2003 [facility]-Infant/Child/Adol SDOH Screenings 2003 [facility]- SDOH Screenings 2021 [facility]-Adult SDOH Screenings 2021 [id number] Vaccine (1 - season) 2024 [facility]-DTaP,Tdap,and Td [...] patient's age to complete this topic Insurance [facility] MEDICAID Care Teams College President Relationship Specialty Start Date End Date Harjeet Soto MD [address] [place] [address] PCP - General 03/07/21
--- OUTSIDE RECORDS SUMMARY | 2025-06-09 15:59 | XMS_ITS | Clinical Summary ---
Author Organization [facility] Address [address] [place] [phone] Phone Care Team Providers Care Software Test Automation Engineer Name Role Phone Harjeet Soto MD Primary Care Provider [phone] Allergies Active Allergy Reactions Criticality Noted Date [...] LIGAMENT RECONSTRUCTION; Surgeon: Babak Overton MD; Location: [facility]; Service: Orthopedics Medical devices from this surgery [...] maintain an ideal body weight General No [place], Chantal, [employer] Medical Devices Implanted Type Area Cloak Room Attendant Device Identifier Shelf Expiration Date Model / Serial / Lot System Meniscal Repair Truespan 12 Degree - [id number] Implanted:Qty: 3 on 06/29/2017 by Babak Overton MD at [facility] Right: Knee J&J:[employer]:MITEK PRDT 03/24/2020 [id number] / / [id number] System Meniscal Repair Truespan 0 Degree - [id number] Implanted:Qty: 1 on 06/29/2017 by Babak Overton MD at [facility] Right: Knee J&J:ETH[employer]ON:MITEK PRDT 05/05/2019 [id number] / / [id number] Screw Rigidloop Cortical Fixation Implant 15mm - [id number] Implanted:Qty: 1 on 06/29/2017 by Babak Overton MD at [facility] Right: Knee J&J:[employer]:MITEK PRDT 06/24/2019 [id number] / / [id number] Screw Bio-Intrafix 6mm - 8mm X 30mm Tapered - [id number] Implanted:Qty: 1 on 06/29/2017 by Babak Overton MD at [facility] Right: Knee J&J:[employer]:MITEK PRDT 09/23/2019 [id number] / / [id number] Sheath Tibial Bio-Intrafix Small - [id number] Implanted:Qty: 1 on 06/29/2017 by Babak Overton MD at [facility] Right: Knee J&J:[employer]:MITEK PRDT 01/22/2019 [id number] / / [id number] Insurance ALANA PPO ALANA PPO Member Subscriber Plan / Payer (Ef fective 2016-Present) Name:Andrew Muniz Relation to Subscriber:Child Name:RAFAELA POLANCO Date of :2003 (Home) Address: [address] [place] [address] Payer ID:[id number] (NAIC) Group ID:Not on file Type:Not on file Address: [facility] [id number] [place] [address] Care Teams Software Test Automation Engineer Relationship Specialty Start Date End Date Harje[place] [address] [place] [address] PCP - General 09/13/09
[2025-06-09 16:00] VITALS: BP 155/93; PULSE 105; RESP 16; TEMP 37; O2SAT 98
[2025-06-09 16:01] VITALS: BP 155/93; PULSE 121; O2SAT 97
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
--- NOTE | 2025-06-09 16:09 | ED_ITS ---
Discharge Plan Disposition Patient Disposition: Home, Self-Care Prescriptions Prescriptions: New cephalexin 500 mg capsule 500 mg PO Q6H 10 Days Qty: 40 0RF No Action bisoprolol fumarate 5 mg tablet See Rx Instructions .ROUTE .COMPLEX Qty: 90 3RF Dose Instruction: TAKE 1 TABLET BY MOUTH EVERY DAY Rx Instructions: TAKE 1 TABLET BY MOUTH EVERY DAY lisinopril-hydrochlorothiazide 20-12.5 mg tablet 1 tab PO DAILY Qty: 90 1RF buspirone 10 mg tablet 10 mg PO TID PRN (Reason: anxiety or irritability) Qty: 90 0RF albuterol sulfate 90 mcg/actuation HFA aerosol inhaler 2 puff inhalation Q4-6H PRN (Reason: shortness of breath or wheezing) Qty: 8.5 3RF sertraline 50 mg tablet 50 mg PO .COMPLEX Qty: 40 0RF Rx Instructions: 50 mg orally take 1/2 tablet daily x 7 days, then 1 tablet daily x 7 days, then 2 tabs daily; methocarbamol 750 mg tablet 750 mg PO Q6H PRN (Reason: muscle spasm) Qty: 20 0RF prednisone 50 mg tablet 50 mg PO DAILY 5 Days Qty: 5 0RF Referrals Follow up/Referrals: Aure Shanks APRN [Primary Care Provider, Family Practice] - See instructions Richard Nava DO [Staff Physician, Orthopedics] - See instructions Activity Restrictions/Add. Instructions Additional Instructions/Restrictions: If the metal piece of the fingernail comes out on its own, do not try to put it back in. You are being prescribed a course of antibiotics. Take this 4 times daily as prescribed for the full 10 days. You are being referred to the orthopedic surgeon, Dr. Nava. I would like you to follow-up with them to schedule an appointment in approximately 7 days. Keep the splint on the hand until your follow-up appointment. You can take Tylenol and ibuprofen to help with pain. If you develop any signs of infection, such as pus draining from the wound, increased redness or swelling, fever, difficulty moving the finger with swelling, return to the emergency department for evaluation Clinical Impressions Clinical Impression: Open fracture of tuft of distal phalanx of finger, Nailbed laceration, finger Instructions Patient Instructions: DI for Laceration Repair Print Language Print Language: German Discharge ED Provider: Karsner,Abel General Adult HPI General Chief complaint: Wound/Laceration Stated complaint: AO 06/09/25 1500 injury right index finger Time Seen by Provider: 06/09/25 16:05 Mode of Arrival: Ambulatory Source of Information: Patient Description of Symptoms (Recalled from ER Triage Doc. by RN): pt presents to ED with a smashed right index finger. pt reports that he hit the nail with a hammer. pain noted to pt's right index finger. unknown last tetanus shot. History of Present Illness HPI narrative: Andrew Muniz is a 20y male with no significant past medical history who presents to the emergency department for complaints of an injury to his right index finger. Patient states approximately 1 hour prior to arrival, he was swinging a hammer and hit his left index finger near the fingernail. He states that it started bleeding and he noticed that the fingernail was missing. He has a cut to where the fingernail was and along the side of the finger. He states that he is moving the finger appropriately but is tender on the distal phalanx. He has no other injuries or complaints. Related Data Previous Rx's ?Medication ?Instructions ?Recorded albuterol sulfate 90 mcg/actuation 2 puff inhalation Q 4-6H PRN 04/17/25 aerosol inhaler shortness of breath or wheez ing #8.5 grams bisoprolol fumarate 5 mg tablet See Rx Instructions .R oute 04/17/25 .COMPLEX #90 tabs buspirone 10 mg tablet 10 mg PO TID PRN anxiety or 04/17/25 irritability #90 tabs lisinopril 20 1 tab PO DAILY #90 tabs 03/26 02/16 mg-hydrochlorothiazide 12.5 mg tablet sertraline 50 mg tablet 50 mg PO .COMPLEX #40 tabs 0 04/17/25 methocarbamol 750 mg tablet 750 mg PO Q6H PRN muscle s pasm #20 05/20/25 tabs prednisone 50 mg tablet 50 mg PO DAILY 5 days #5 tab s 05/20/25 cephalexin 500 mg capsule 500 mg PO Q6H 10 days #40 ca ps 06/09/25 Allergies Allergy/AdvReac Type Severity Reaction Status Date / Time No Known Allergies Allergy Verified 04/17/25 15:29 [facility] Disclaimer: The information contained in this section may have been updated after the patient was seen, as this information can be updated by other users. Medical History Occupational exposure to air contaminants Asthma Allergic rhinitis DDD (degenerative disc disease), cervical Witnessed apneic spells Snoring Has daytime drowsiness Bradycardia ASD (atrial septal defect) Right ventricular dilation Essential hypertension Family history of congenital heart defect Palpitations ACL tear Poor concentration Generalized anxiety disorder Major depression, recurrent Crushing injury of left thumb Family History Other No significant family history Social History Smoking Status: Current every day smoker alcohol intake: never substance use type: denies use current occupational status: employed and disabled Travel in the last 8 weeks?: None caffeine: Yes Have you lived/traveled outside [place] in past 30 days?: No Contact w/someone who lives/traveled outside [place] past 30 days?: No Exposure to someone with infectious disease in past 14 days?: No Do you have a fever (greater than 100.4 F or 38 C)?: No Have you tested positive for COVID-19?: No Exposed to someone with COVID-19 in past 14 days?: No Do you have a sore throat?: No Do you have a cough?: No Do you have any weakness?: No Do you have any diarrhea?: No Are you experiencing any unusual bleeding?: No Do you have any muscle aches/pain?: No Do you have any abdominal pain?: No Are you experiencing loss of taste or smell?: No Other Medical History Have you received the Flu Vaccine for this season: No Have you received the Pneumonia Vaccine: No ROS Obtained: Yes Systems reviewed as appropriate & no additional complaints except as documented Physical Exam General General appearance: alert and in no apparent distress Head Head exam: atraumatic Eye Eye exam: Present normal appearance ENT ENT exam: Present normal external ear exam Neck Neck exam: Present full ROM Chest Chest inspection: Present symmetric chest wall rise Respiratory Respiratory exam: Present normal lung sounds bilaterally; Absent respiratory distress Cardiovascular Cardiovascular exam: Present regular rate and normal rhythm Abdominal Exam Abdominal exam: Present soft; Absent tenderness or guarding exam: Present deferred Extremities Exam Extremities exam: Present normal inspection Expanded Upper Extremity Exam Right: Hand L/R back image: 2 1. Fingernail completely absent 2. laceration 3. laceration Back Exam Back exam: Present normal inspection Neurological Exam Neurological exam: Present alert and oriented X3 Psychiatric Psychiatric exam: Present normal affect Skin Skin exam: Present warm and dry Medical Decision Making Medical Records Screening: Per USPSTF and CDC recommendations, given the prevalence of disease in our region, it is our hospital?s policy to screen for HIV and viral Hepatitis for all patients aged 18 and over and those with ongoing risk factors. Jermaine Inquiry Pt receiving controlled substance: No Vital Signs: 06/09/25 15:54 06/09/25 16:00 06/09/25 16:01 Temperature 98.6 F 98.6 F Temperature Source Oral Oral Pulse Rate 105 H 121 H Pulse Rate [Right] 105 H Respiratory Rate 16 16 Blood Pressure 155/93 H 155/93 H Blood Pressure [Right Arm] 155/93 H Blood Pressure Mean [Right Arm] 113 Blood Pressure Source Automatic Cuff Blood Pressure Source [Right Arm] Automatic Cuff Blood Pressure Position Supine Blood Pressure Position [Right Arm] Supine 02 Sat by Pulse Oximetry 98 98 97 Oxygen Delivery Method Room Air Room Air Orders (Tests/Meds): ED MEDICATIONS Discontinued Medications Generic Name Dose Route Start Last Admin Trade Name Freq PRN Reason Stop Dose Admin Acetaminophen 1,000 mg 06/09/25 16:07 06/09/25 16:29 Acetaminophen 500mg Tab PO 06/09/25 16:08 1,000 mg ONCE ONE Administration Cephalexin HCl 500 mg 06/09/25 16:32 06/09/25 17:06 Cephalexin 250mg/5ml 100ml Susp PO 06/09/25 16:33 Not Given ONCE ONE Cephalexin HCl 500 mg 06/09/25 17:05 Cephalexin 500mg Capsule PO 06/09/25 17:06 ONCE ONE Ibuprofen 600 mg 06/09/25 16:07 06/09/25 16:29 Ibuprofen 600 Mg Tablet PO 06/09/25 16:08 600 mg ONCE ONE Administration Lidocaine HCl 10 ml 06/09/25 16:09 06/09/25 16:30 Lidocaine 1% 10ml Mdv IJ 06/09/25 16:10 10 ml ONCE ONE Administration Tetanus/Reduced Diphtheria/Acell Pertussis 0.5 ml 06/09/25 16:07 06/09/25 16:29 Tet/Diphth/Pert-Adult 0.5ml Syringe IM 06/09/25 16:08 0.5 ml .ONCE ONE Administration ORDERS Category Date Time Status Hand XR right 2 views [XR hand RT 2V] Stat Exams 06/09/25 16:07 Taken Medical Decision Narrative: Andrew Muniz is a 20y male with no significant past medical history who presents to the emergency department for complaints of an injury to his right index finger. Patient states approximately 1 hour prior to arrival, he was swinging a hammer and hit his left index finger near the fingernail. He states that it started bleeding and he noticed that the fingernail was missing. He has a cut to where the fingernail was and along the side of the finger. He states that he is moving the finger appropriately but is tender on the distal phalanx. He has no other injuries or complaints. On arrival, patient is mildly hypertensive and tachycardic but otherwise stable. Afebrile. Physical exam, stated above, revealed an overall well-appearing male in no distress. He has a completely absent fingernail on the right second digit. Some tenderness over the distal phalanx. There is a small laceration at the nailbed and along the lateral aspect of the distal phalanx. No active bleeding. Full range of motion at all joint spaces of the finger. No other injuries are appreciated. Differential diagnosis includes, but is not limited to: Open fracture, laceration, nailbed injury, nailbed avulsion, among others. Will obtain x-rays of the right hand as well as tetanus booster as patient does not know when his last tetanus shot was. Will also administer 1000 mg of oral Tylenol and 6 and milligrams of oral ibuprofen for pain. Will clean the wound thoroughly but will require laceration repair given nailbed involvement. X-rays interpreted by me personally. On lateral view, patient appears to have a nondisplaced distal tuft fracture. Will administer 500 mg of p.o. Keflex. Patient's wound was irrigated thoroughly with sterile water and Hibiclens. Patient's finger was anesthetized with 1% lidocaine via digital block. Adequate anesthesia was obtained. The laceration to the nailbed was repaired using two 5-0 fast gut sutures. Patient's laceration along the lateral aspect of the finger was also repaired using two 5-0 nylon sutures. See procedure note for details. Patient had a metallic nail splint placed and Dermabond in place. Xeroform was then placed over the wound and patient was placed in a finger splint. I did discuss patient's case with Dr. Nava who agreed with plan to discharge with Keflex and 1 week follow-up. Patient was instructed to keep the wound clean. Will discharge with 10-day course of Keflex. Return precautions were given for any signs of infection. All questions were answered. He demonstrated understanding and was in agreement this plan. He was then discharged from the emergency department in stable condition. Procedures Laceration Laceration 1: Site: finger (right 2nd finger) Side (If applicable): right Size (cm): 1.5 Description: linear Depth: simple, single layer Local Anesthetic: lidocaine 1% Amount of anesthesia used (mL): 8 Pre-repair: wound explored and irrigated extensively Skin layer closed with: other (Fast gut at the nailbed (x2) and Nylon on the lateral aspect of the wound (x2)) Size (cm): 5-0 Number of sutures: 4 Technique: simple, interrupted Nerve Block Nerve Block 1: Local Anesthetic: lidocaine 1% Amount of anesthesia used (mL): 8 Side: Right Nerve Blocks: digital Procedure Successful: Yes Patient Tolerated Procedure: well Complications: none Critical Care Critical Care Time Critical Care Time: No
--- NOTE | 2025-06-09 16:24 | PC.NURSE ---
pt finger soaking with hibiclens and saline
[2025-06-09] MEDS: IBUPROFEN 600 MG TABLET PO (16:29)
[2025-06-09] MEDS: ACETAMINOPHEN 500MG TAB 1000 MG PO (16:29)
[2025-06-09] MEDS: TET/DIPHTH/PERT-ADULT 0.5ML SYRINGE 0.5 ML IM (16:29)
[2025-06-09] MEDS: LIDOCAINE 1% 10ML MDV 10 ML IJ (16:30)
[2025-06-09 17:29] VITALS: BP 147/91; PULSE 110; RESP 15; TEMP 36.9; O2SAT 98
== END 2025-06-09 17:32 | disposition home or self-care (01) ==
PROVIDERS: Emergency Provider Student in an Organized Health Care Education/Training Program; PCP Nurse Practitioner
DX: S62.630B Displaced fracture of distal phalanx of right index finger, initial encounter for open fracture (principal); W27.8XXA Contact with other nonpowered hand tool, initial encounter
CPT/HCPCS: 12041; 73120; 90471; 90715; 99283; J2003